=== PATIENT | male | born 1970 | race Caucasian/White ===

== ENCOUNTER 2017-12-05 11:50 | Emergency (ER) | payer OTHER | END 2017-12-05 14:13 | disposition home or self-care (01) | LOC: FTE 11:50 | DX: G40.909 Epilepsy, unspecified, not intractable, without status epilepticus (principal); R55 Syncope and collapse | CPT/HCPCS: 99283-25; Z7502 ==

== ENCOUNTER → 2019-05-29 | Emergency (ER) | payer MEDICAID, OTHER ==
[2019-05-29 16:59] LABS: ADD MAN DIFF? NO
[2019-05-29 17:03] LABS: WHITE BLOOD COUNT 7.8 10^3/ul (4.8-10.8)
[2019-05-29 17:03] LABS: HEMOGLOBIN 16.2 g/dl (14.0-18.0); MEAN CORPUSCULAR VOLUME 87.3 fl (82.0-101.0); RED BLOOD COUNT 5.27 10^6/ul (4.70-6.10)
[2019-05-29 17:04] LABS: BASOPHILS % 0.5 % (0.0-2.0); EOSINOPHILS # 0.1 10^3/ul (0.0-0.5); EOSINOPHILS % 1.3 % (0.0-7.0); LYMPHOCYTES # 2.7 10^3/ul (0.8-2.9); LYMPHOCYTES % 34.1 % (15.0-51.0); MEAN CORPUSCULAR HEMOGLOBIN 30.7 pg (29.0-33.0); MEAN CORPUSCULAR HGB CONC 35.2 g/dl (32.0-37.0); MEAN PLATELET VOLUME 9.4 fl (7.4-10.4); MONOCYTE # 0.5 10^3/ul (0.3-0.9); NEUTROPHIL # 4.5 10^3/ul (1.6-7.5); NEUTROPHILS % 57.8 % (39.0-77.0); PLATELET COUNT 283 10^3/UL (140-415); RED CELL DISTRIBUTION WIDTH 12.4 % (11.5-14.5)
[2019-05-29 17:19] LABS: ANION GAP 10 (5-13); BLOOD UREA NITROGEN 14 mg/dl (7-20); CALCIUM 9.6 mg/dl (8.4-10.2); CARBON DIOXIDE 28 mmol/L (21-31); CHLORIDE 105 mmol/L (97-110); CREATININE 0.63 mg/dl (0.61-1.24); Estimated GFR > 60 mL/min (>60); GLUCOSE 102 mg/dl (70-220); POTASSIUM 3.9 mmol/L (3.5-5.1); SODIUM 143 mmol/L (135-144)
== END | disposition home or self-care (01) ==
LOC: FTE 13:07
DX: R53.83 Other fatigue (principal)
CPT/HCPCS: 80048; 85025; 93005; 99284-25